=== PATIENT | female | born 1950 | race American Indian/Alaskan Native ===

== ENCOUNTER 2020-07-30 08:00 | Day surgery (SDC) | payer MEDICARE ==
[2020-07-24 11:59] LABS: Hematocrit 37.2 % (30.3-42.9); Hemoglobin 12.4 gm/dl (10.1-14.3); Mean Corpuscular HGB Conc 33 % (30-34); Mean Corpuscular Volume 84 fl (79-97); Platelet Count 261 K/mm3 (140-440); Red Blood Count 4.45 M/mm3 (3.65-5.03); Red Cell Distribution Width 14.7 % (13.2-15.2)
[2020-07-24 12:15] LABS: BUN/Creatinine Ratio 21; Blood Urea Nitrogen 15 mg/dL (7-17); Calcium 9.3 mg/dL (8.4-10.2); Hemolysis Index 0
--- NOTE | 2020-07-29 12:45 | History and Physical Report ---
History of Present Illness Date of examination: 07/24/20 Chief complaint: Thickened endometrium with postmenopausal bleeding History of present illness: Past History : 2 Term Births: 2 Living Children: 2 # 1 Delivery date: 1976 Delivery type: # 2 Delivery type: CARDIAC CATH RN History Operations: Cholecystectomy Tubal Ligation D&C: (09/17/2015) Hysteroscopy: (09/17/2015) with polypectomy Total Knee Arthroplasty (2017) (R) replacement Colon polypectomy (2017) benign Abnormal PAP: negative Infection History HIV Risk Eval: no Hx of STD: None Active Medications (reviewed today): BLACK ELDERBERRY(PLASCENCIA-FLOWER) CAPSULE (BLACK ELDERBERRY(PLASCENCIA-FLOWER) CAPS) VITAMIN D (CHOLECALCIFEROL) 25 MCG (1000 UT) ORAL CAPSULE (CHOLECALCIFEROL) VITAMIN C CAPSULE (ASCORBIC ACID CAPS) TYLENOL CAPSULE (ACETAMINOPHEN CAPS) MELATONIN 1 MG ORAL TABLET (MELATONIN) MAXZIDE 75-50 MG ORAL TABLET (TRIAMTERENE-HCTZ) DICLOFENAC SODIUM 25 MG ORAL TABLET DELAYED RELEASE (DICLOFENAC SODIUM) Current Allergies (reviewed today): No known allergies Past Medical History: Reviewed history from 04/05/2020 and no changes required: Chronic swelling arthritis Hypertension Diverticulosis (2017) Colon polyps (2017) Needs colon cancer screening 2026 Past Surgical History: Reviewed history from 04/05/2020 and no changes required: Cholecystectomy Tubal Ligation D&C: (09/17/2015) Hysteroscopy: (09/17/2015) with polypectomy Total Knee Arthroplasty (2017) (R) replacement Colon polypectomy (2017) benign Family History Summary: Reviewed history Last on 04/05/2020 and no changes required:07/29/2020 Other Family Member - Has No Family History of Uterine Cancer - Entered On: 01/03/2016 Other Family Member - Has No Family History of Small Bowel Cancer - Entered On: 01/03/2016 Other Family Member - Has No Family History of Stomach Cancer - Entered On: 01/03/2016 Other Family Member - Has No Family History of Pancreatic Cancer - Entered On: 01/03/2016 Other Family Member - Has No Family History of Ovarvian Cancer - Entered On: 01/03/2016 Other Family Member - Has No Family History of Kidney/Urinary Tract Cancer - Entered On: 01/03/2016 Other Family Member - Has No Family History of DVT/PE on OCP - Entered On: 01/03/2016 Other Family Member - Has No Family History of Colon Cancer - Entered On: 01/03/2016 Other Family Member - Has No Family History of Brain Cancer - Entered On: 01/03/2016 Other Family Member - Has No Family History of Breast Cancer - Entered On: 01/03/2016 Other Family Member - Has No Family History of Biliary Tract Cancer - Entered On: 01/03/2016 Uncle - Has Family History of Prostate Cancer - maternal x2 - Entered On: 04/05/2020 General Comments - FH: No Family History of Breast Cancer No Family History of Colon Cancer No Family History of Ovarian Cancer Social History: Reviewed history from 01/06/2017 and no changes required: Patient is Smoking History: Patient has never smoked. Risk Factors: Smoked Tobacco Use: Never smoker Smokeless Tobacco Use: Never Passive smoke exposure: no Drug use: no HIV high-risk behavior: no Alcohol use: yes Exercise: yes Times per week: occ Type of Exercise: walking Seatbelt use: 100 % Previous Tobacco Use: Signed On 05/10/2020 Smoked Tobacco Use: Never smoker Smokeless Tobacco Use: Never Drug use: no HIV high-risk behavior: no Previous Alcohol Use: Signed On 05/10/2020 Alcohol use: yes Type: occ Drinks per day: social Exercise: no Seatbelt use: 100 % Colonoscopy History: Date of Last Colonoscopy: 02/05/2017 Mammogram History: Date of Last Mammogram: 01/31/2018 PAP Smear History: Date of Last PAP Smear: 04/08/2020 Physical Exam Appearance: well developed, well nourished, no acute distress Other Exams Lungs: no rales, rhonchi, or wheezes Heart: S1, S2, no murmur, rub, or gallop Genitourinary Exam Uterus: deferred for EMB Impression & Recommendations: Problem # 1: Endometrium thickened (ICD-793.5) (YLJ04-S70.89) She is at high risk for hyperplasia/cancer d/t BMI however poor candidate for major surgical procedure. Patient again states the spotting is from the vagina and not the GI tract. She had a GI evaluation 2018 that was negative. Problem # 2: Postmenopausal Bleeding (ICD-627.1) (AUX93-W04.0) m) Consent reviewed and signed . Possible laparoscopy or laparotomy explained to patient. The risks and alternatives for this surgery were reviewed with the patient. She was informed of possible bleeding, infection, injury to bowel, bladder, ureters or other adjacent organs. The patient was instructed/informed the following: The normal length of hospital stay for this procedure. Nothing to eat or drink after midnight the evening prior to surgery. Pre-op instruction sheets given. Wound care instructions given. Infection precautions reviewed, patient to call for any signs or symptoms of infection. The usual discomforts associated with this procedure were detailed. Proper use of pain medicines was reviewed. Patient was given ample opportunity to have all her questions answered before signing informed consent. Medications Added to Medication List This Visit: 1) Black Elderberry(plascencia-flower) Capsule (Black elderberry(plascencia-flower) caps) 2) Vitamin D (cholecalciferol) 25 Mcg (1000 Ut) Oral Capsule (Cholecalciferol) 3) Vitamin C Capsule (Ascorbic acid caps) 4) Tylenol Capsule (Acetaminophen caps) ] Medications and Allergies Allergies Allergy/AdvReac Type Severity Reaction Status Date / Time No Known Allergies Allergy Unverified 07/23/20 15:20 Home Medications Medication Instructions Recorded Confirmed Last Taken Type Diclofenac Sodium 50 mg PO BID 07/23/20 07/23/20 Unknown History Triamterene/Hydrochlorothiazid 1 tab PO QDAY 07/23/20 07/23/20 Unknown History [Triamterene-Hctz 75-50 mg Tab] Active Meds: Active Medications Cefazolin Sodium 3 gm/ Sodium (Chloride) 100 mls @ 100 mls/30 min IV PREOP NR; Protocol Stop: 07/29/20 16:00 Exam Vital Signs Temp Pulse Resp BP Pulse Ox 98.4 F 66 20 138/81 98 07/24/20 10:55 07/24/20 10:55 07/24/20 10:55 07/24/20 10:55 07/24/20 10:55 Results - Labs 07/24/20 11:00 07/24/20 11:00 Assessment and Plan - Patient Problems (1) Thickened endometrium Status: Acute Plan to address problem: She presents for hysteroscopy D&C to thoroughly assess the endometrium for hyperplasia or malignancy (2) Postmenopausal bleeding Status: Acute (3) BMI 45.0-49.9, adult Status: Chronic (4) Hypertension Status: Chronic Qualifiers: Hypertension type: essential hypertension Qualified Code(s): I10 - Essential (primary) hypertension
[~2020-07-30 08:00] MED LIST: LACTATED RINGERS 1,000 ML IV SCH
[2020-07-30] MEDS ORDERED: LACTATED RINGERS 1,000 ML ONE (08:09)
[2020-07-30] MEDS ORDERED: BACTERIOSTATIC SODIUM CHLORIDE 0.9% 30 ML VIAL INFILTRATI ONE (08:10)
[2020-07-30] MEDS ORDERED: HYDROmorphone 1 MG/1 ML INJ IV PRN ×2 (09:35)
[2020-07-30] MEDS ORDERED: ONDANSETRON 4 MG/2 ML INJ IV PRN (09:35)
--- NOTE | 2020-07-30 09:36 | Anesthesia Day of Surgery ---
Anesthesia Day of Surgery - Day of Surgery Patient Examined: Yes Patient H&P Reviewed: Yes Patient is NPO: Yes
--- NOTE | 2020-07-30 09:39 | Anesthesia Consultation ---
Anesthesia Consult and Med Hx Date of service: 07/30/20 - Airway Anesthetic Teeth Evaluation: Chipped, Partials ROM Head & Neck: Adequate Mental/Hyoid Distance: Adequate Mallampati Class: Class II Intubation Access Assessment: Good - Pre-Operative Health Status ASA Pre-Surgery Classification: ASA3 Proposed Anesthetic Plan: General - Pulmonary Hx Smoking: No Hx Asthma: No Hx Sleep Apnea: No - Cardiovascular System Hx Hypertension: Yes - Gastrointestinal Hx Gastroesophageal Reflux Disease: No - Endocrine Hx Renal Disease: No Hx Non-Insulin Dependent Diabetes: Yes ("PRE") - Hematic Hx Sickle Cell Disease: No - Other Systems Hx Alcohol Use: Yes ([place] ON WEEKENDS AND OCCASIONALLY DURING THE WEEK) Hx Substance Use: No Hx Cancer: No Hx Obesity: Yes - Additional Comments Anesthesia Medical History Comments: +cardiac clearance-->had abnormal ECG, NST/ECHO ok
[2020-07-30] MEDS ORDERED: MIDAZOLAM 2 MG/2 ML INJ IV NR (10:00)
[2020-07-30] MEDS ORDERED: PHENYLEPHRINE/NS 1,000 MCG/10 ML SYRINGE (OR USE) IV ONE (12:12)
[2020-07-30] MEDS ORDERED: fentaNYL 100 MCG/2 ML INJ ONE (12:12)
[2020-07-30] MEDS ORDERED: LIDOCAINE MPF (2%) 20 MG/1 ML VIAL 5 ML ONE (12:12)
[2020-07-30] MEDS ORDERED: propofoL 200 MG/20 ML VIAL IV ONE (12:12)
[2020-07-30] MEDS ORDERED: dexAMETHasone 20 MG/5 ML VIAL ONE (12:12)
[2020-07-30] MEDS ORDERED: ROCURONIUM 50 MG/5 ML INJ IV ONE (12:12)
[2020-07-30] MEDS ORDERED: NEOSTIGMINE 10MG/10 ML INJ MDV ONE (12:12)
[2020-07-30] MEDS ORDERED: GLYCOPYRROLATE 0.4 MG/2 ML INJ ONE (12:12)
[2020-07-30] MEDS ORDERED: SUCCINYLCHOLINE CHLORIDE 200 MG/10 ML INJ MDV ONE (12:12)
[2020-07-30] MEDS ORDERED: ONDANSETRON 4 MG/2 ML INJ ONE (12:12)
[2020-07-30] MEDS ORDERED: SODIUM CHLORIDE 0.9% IRR 1,500 ML BOTTLE IR ONE (12:45)
[2020-07-30] MEDS ORDERED: SUGAMMADEX SODIUM 200 MG/2 ML VIAL IV ONE (12:50)
--- NOTE | 2020-07-30 13:37 | Discharge Summary ---
Providers - Providers Date of discharge: 07/30/20 Attending physician: SIDNEY COLES Primary care physician: CURATOR OF EDUCATION Hospitalization Condition: Good Disposition: DC-01 TO HOME OR SELFCARE Final Discharge Diagnosis (Prints w/discharge instructions): Postmenopausal bleeding, endometrial polyp - Discharge Diagnoses (1) Thickened endometrium Status: Acute (2) Postmenopausal bleeding Status: Acute (3) BMI 45.0-49.9, adult Status: Chronic (4) Hypertension Status: Chronic Qualifiers: Hypertension type: essential hypertension Qualified Code(s): I10 - Essential (primary) hypertension (5) Endometrial polyp Status: Acute Core Measure Documentation - Palliative Care Palliative Care/ Comfort Measures: Not Applicable - Core Measures Any of the following diagnoses?: none Exam - Constitutional Vitals: Temp Pulse Resp BP Pulse Ox 98.9 F 66 22 139/73 97 07/30/20 08:35 07/30/20 08:35 07/30/20 08:35 07/30/20 08:35 07/30/20 08:35 General appearance: Present: no acute distress - Neck Neck: Present: supple - Respiratory Respiratory effort: normal - Cardiovascular Rhythm: regular - Psychiatric Psychiatric: appropriate mood/affect, intact judgment & insight, memory intact, cooperative Plan Activity: other (No sex, no douching. ) Weight Bearing Status: Full Weight Bearing Diet: low fat, low cholesterol, low salt Special Instructions: no heavy lifting (Greater than 25lbs) Follow up with: PRIMARY CARE, [Primary Care Provider] - 7 Days SIDNEY COLES MD [Staff Physician] - (As scheduled) Forms: Outpatient Surgery DC Inst. Prescriptions: oxyCODONE /ACETAMINOPHEN [Percocet 5/325] 1 tab PO Q6HR #5 tablet
[2020-07-30] MEDS ORDERED: oxyCODONE /ACETAMINOPHEN 5-325MG TAB PO PRN (13:59)
[2020-07-30 14:01] VITALS: BP 149/81
--- NOTE | 2020-07-30 14:03 | Operative Report ---
Operative Report Operative Report: Date: 07/30/2020 PREOPERATIVE DIAGNOSES: 1. Postmenopausal bleeding 2. Thickened endometrium POSTOPERATIVE DIAGNOSES: 1. Postmenopausal bleeding 2. Thickened endometrium 3. Endometrial polyp PROCEDURE PERFORMED: 1. Hysteroscopy. 2. Dilation and curettage (D&C) 3. Hysteroscopic polypectomy 4. Resection of endometriium ANESTHESIA: General ESTIMATED BLOOD LOSS: Less than minimal cc. INDICATIONS: This is a six 9-year-old [id number] that presents the above. PROCEDURE: The patient was seen in the preoperative suite. Expected procedure and postoperative course discussed with her. She was taken to the operative suite where general anesthesia was performed. She was placed in a dorsal l ithotomy position. . A bimanual exam was done, the uterus was found to be unable to palpate due to BMI. She was prepped and draped in the normal sterile fashion. Timeout was performed. A Tello catheter was introduced into the bladder which produced approximately 125 cc of clear yellow urine. The cervix and vagina were grossly normal with no obvious masses or deformities. A bivalve operative spec ulum was placed in the vagina and the anterior lip of the cervix was grasped with the single-tooth tenaculum. The uterus was sounded to ~8 cm. The cervix was progressively dilated to allow the diagnostic hysteroscope. Under direct visualization, the ostia were within normal limits. The endometrial lining appeared thickened, however, there was no obvious evidence of malignancy. Endometrial polyp was noted on the left anterior lateral wall. Using the Myosure device the polyp was resected. Then further tissue was resected from the endometrium to thin out the lining and obtain a better sample. The hysteroscope was removed and a small sharp curette was placed intrauterine very carefully using anterior wall for guidance. Endometrial curettings were obtained. The endometrial sampling was placed on Telfa pad and sent to Pathology for evaluation, permanent. The hysteroscope was introduced again, no evidence of perforation was noted. At this point procedure was ended. The single-tooth tenaculum and speculum were removed. The cervix was found to be hemostatic. Counts were correct. Patient was taken to the PACU stable. Distention fluid: Normal saline Deficit: 260 mL normal saline
--- NOTE | 2020-07-30 15:48 | Post Anesthesia Evaluation ---
- Post Anesthesia Evaluation Patient Participated: Yes Airway Patent: Yes Stable Respiratory Function: Yes Nausea/Vomiting: No Temp > 96.8F: Yes Pain Manageable: Yes Adequeate Hydration: Yes Anesthesia Complications: No Block Receding Appropriately: Not Applicable Patient on Ventilator: No
== END 2020-07-30 14:40 | disposition home or self-care (01) ==
LOC: OR 08:00
PROVIDERS: ATTEND Obstetrics & Gynecology
DX: N95.0 Postmenopausal bleeding (principal); N84.0 Polyp of corpus uteri; Z20.822 Contact with and (suspected) exposure to COVID-19; E11.9 Type 2 diabetes mellitus without complications; I10 Essential (primary) hypertension; E66.9 Obesity, unspecified; M19.90 Unspecified osteoarthritis, unspecified site; Z98.51 Tubal ligation status; Z96.651 Presence of right artificial knee joint; Z90.49 Acquired absence of other specified parts of digestive tract; Z79.899 Other long term (current) drug therapy; Z72.89 Other problems related to lifestyle; Z98.890 Other specified postprocedural states; Z80.42 Family history of malignant neoplasm of prostate; Z68.41 Body mass index [BMI] 40.0-44.9, adult
CPT/HCPCS: 36415; 58558; 80048; 85027; 88305; J0330; J0690; J1100; J1170; J2250; J2370; J2405; J2704; J2710; J3010; J7120; U0003; 81025; C1782